=== PATIENT | male | born 1995 | race African-American/Black ===

== ENCOUNTER 2017-12-21 12:02 | Emergency (ER) | payer MEDICAID ==
--- NOTE | 2017-12-21 12:53 | ED Physician Chart ---
ED Chief Complaint/HPI - Patient Information Date Seen:: 12/21/17 Time Seen:: 12:47 Chief Complaint:: Abdominal pain and vomiting History of Present Illness:: 22 yo male with autism was brought by mother to ER for evaluation of abdominal pain, vomiting and diarrhea which started last night and persisted until this morning. No fever or chills. Per mother, the symptoms had lasted longer than his previous episodes of vomiting. Vitals:: Vital Signs - 8 hr 12/21/17 12:11 Temp 99.5 F HR 142 RR 23 BP 154/82 O2 Sat % 96 ED Review of Systems - Review of Systems General/Constitutional: No fever, No chills Skin: No rash Head: No headache Eyes: No pain ENT: No nasal drainage Neck: No neck pain Cardio Vascular: No chest pain Pulmonary: No SOB GI: Nausea, Vomiting, Diarrhea Musculoskeletal: No bone or joint pain Neurological: No focal symptoms ED Past Medical History - Past Medical History Past Medical History: Dyslipidemia (hyperlipidemia), Other (Austism, learning disability) Social History: Non Smoker, No Alcohol, No Drug Use Surgical History: other (Right kidney removed, right foot surgery) Family Medical History - Family Member Mother History Unknown: Yes ED Physical Exam - Physical Examination General/Constitutional: Awake Head: Atraumatic Eyes: PERRL Skin: No skin lesions ENMT: Nasal exam nl Neck: No nuchal rigidity Respiratory: No Wheeze/Rhonchi/Rales Cardio Vascular: RRR, No murmur, gallop, rubs, NL S1 S2 Other GI comments:: Diffuse tenderness, hypoactive bowel sound Extremities: normal strength in all extremities Other Neuro/Psych comments:: oriented to self only ED Labs/Radiology/EKG Results - Lab Results Results: Laboratory Tests 12/21/17 12:15 POC Glucose 161 H Laboratory Last Values WBC 13.5 Th/cmm (4.8-10.8) H 12/21/17 13:04 RBC 5.12 Mil/cmm (4.30-5.70) 12/21/17 13:04 Hgb 15.7 gm/dL (12-16) 12/21/17 13:04 Hct 47.0 % (41.0-60) 12/21/17 13:04 MCV 91.9 fl (80-99) 12/21/17 13:04 MCH 30.8 pg (26.0-30.0) H 12/21/17 13:04 MCHC Differential 33.5 pg (28.0-36.0) 12/21/17 13:04 RDW 12.0 % (11.5-20.0) 12/21/17 13:04 Plt Count 232 Th/cmm (150-400) 12/21/17 13:04 MPV 8.3 fl 12/21/17 13:04 Add Manual Diff YES 12/21/17 13:04 Band Neutrophils % 1 % (0-10) 12/21/17 13:04 Neutrophils (Manual) 89 % (40-80) H 12/21/17 13:04 Lymphocytes 6 % (20-50) L 12/21/17 13:04 Monocytes 4 % (2-10) 12/21/17 13:04 Eosinophils 0 % (0-5) 12/21/17 13:04 Basophils 0 % (0-3) 12/21/17 13:04 PT 11.2 SECONDS (9.5-11.5) 12/21/17 13:18 INR 1.08 (0.5-1.4) 12/21/17 13:18 PTT (Actin FS) 27.7 SECONDS (26.0-38.0) 12/21/17 13:18 Sodium 135 mEq/L (136-145) L 12/21/17 13:04 Potassium 3.5 mEq/L (3.5-5.1) 12/21/17 13:04 Chloride 104 mEq/L (98-107) 12/21/17 13:04 Carbon Dioxide 22.2 mEq/L (21.0-31.0) 12/21/17 13:04 Anion Gap 12.3 (7.0-16.0) 12/21/17 13:04 BUN 16 mg/dL (7-25) 12/21/17 13:04 Creatinine 1.5 mg/dL (0.7-1.3) H 12/21/17 13:04 Est GFR ( Amer) > 60.0 ml/min (>90) 12/21/17 13:04 Est GFR (Non-Af Amer) > 60.0 ml/min 12/21/17 13:04 BUN/Creatinine Ratio 10.7 12/21/17 13:04 Glucose 138 mg/dL (70-105) H 12/21/17 13:04 POC Glucose 161 MG/DL (70 - 105) H 12/21/17 12:15 Whole Bld Lactic Acid 1.79 mmol/L (0.60-1.99) 12/21/17 13:04 Calcium 9.8 mg/dL (8.6-10.3) 12/21/17 13:04 Total Bilirubin 1.2 mg/dL (0.3-1.0) H 12/21/17 13:04 AST 21 U/L (13-39) 12/21/17 13:04 ALT 18 U/L (7-52) 12/21/17 13:04 Alkaline Phosphatase 92 U/L (34-104) 12/21/17 13:04 Total Protein 7.0 gm/dL (6.0-8.3) 12/21/17 13:04 Albumin 4.5 gm/dL (4.2-5.5) 12/21/17 13:04 Globulin 2.5 gm/dL 12/21/17 13:04 Albumin/Globulin Ratio 1.8 (1.0-1.8) 12/21/17 13:04 Amylase 61 U/L (29-103) 12/21/17 13:04 Lipase 13 U/L (11-82) 12/21/17 13:04 Urine Source RANDOM 12/21/17 14:20 Urine Color YELLOW 12/21/17 14:20 Urine Clarity CLEAR (CLEAR) 12/21/17 14:20 Urine pH 6.0 (4.6 - 8.0) 12/21/17 14:20 Ur Specific [place] 1.010 (1.005-1.030) 12/21/17 14:20 Urine Protein 100 mg/dL (NEGATIVE) H 12/21/17 14:20 Urine Glucose (UA) NEGATIVE mg/dL (NEGATIVE) 12/21/17 14:20 Urine Ketones NEGATIVE mg/dL (NEGATIVE) 12/21/17 14:20 Urine Blood SMALL (NEGATIVE) H 12/21/17 14:20 Urine Nitrate NEGATIVE (NEGATIVE) 12/21/17 14:20 Urine Bilirubin NEGATIVE (NEGATIVE) 12/21/17 14:20 Urine Urobilinogen 0.2 E.U./dL (0.2 - 1.0) 12/21/17 14:20 Ur Leukocyte Esterase NEGATIVE (NEGATIVE) 12/21/17 14:20 Urine RBC 0-2 /hpf (0-5) H 12/21/17 14:20 Urine WBC 0-2 /hpf (0-5) 12/21/17 14:20 Ur Epithelial Cells RARE /lpf (FEW) 12/21/17 14:20 Urine Bacteria NONE SEEN /hpf (NONE SEEN) 12/21/17 14:20 - Radiology Results Results: CXR: hyperinflated lung, no focal consolidation - EKG Interpretations EKG Time:: 13:05 Rate & Rhythm: 114 bpm, sinus tachycardia Ramsey: left atrial enlargement ED Assessment - Assessment General Assessment: Gastroenteritis Leukocytosis Elevated creatinine Proteinuria Assessment/Comments:: CBC, CMP, Amylase, lipase, UA CXR, EKG NS 1L IV bolus Levofloxacin 750mg IV x 1 D/c home Levofloxacin 500mg po q48h #3 F/u PCP and power distribution engineer for proteinuria Return to ER if symptoms worsen ED Septic Shock - . Is Septic Shock (SBP<90, OR Lactate>4 mmol\L) present?: No - <6hrs of presentation: Vital Signs: Vital Signs - 8 hr 12/21/17 12:11 Temp 99.5 F HR 142 RR 23 BP 154/82 O2 Sat % 96 ED Reassessment (Disposition) - Reassessment Reassessment Condition:: Improved - Patient Disposition Discharge/Transfer:: Home ED Discharge Plan - Patient Disposition Admit/Discharge/Transfer: PT DISCHARGED HOME Condition at Disposition: Stable Prescriptions: Levofloxacin [Levaquin] 500 mg PO Q48H #3 tab Instructions: Gastritis, Adult, [id number] Additional Instructions: follow up with primary doctor in 1-2 days, return for any concerns, take prescribed medications as ordered.
[2017-12-21 13:11] LABS: HEMOGLOBIN 15.7 gm/dL (12-16); MEAN CELL VOLUME 91.9 fl (80-99); MEAN CORPUSCULAR HEMOGLOBIN 30.8 pg (26.0-30.0); MEAN CORPUSCULAR HGB CONC 33.5 pg (28.0-36.0); MEAN PLATELET VOLUME 8.3 fl; PLATELET COUNT 232 Th/cmm (150-400); RED BLOOD COUNT 5.12 Mil/cmm (4.30-5.70); WHITE BLOOD COUNT 13.5 Th/cmm (4.8-10.8)
[2017-12-21 13:29] LABS: ALB/GLOB RATIO 1.8 (1.0-1.8); ALBUMIN 4.5 gm/dL (4.2-5.5); ALKALINE PHOSPHATASE 92 U/L (34-104); AMYLASE SERUM 61 U/L (29-103); ANION GAP 12.3 (7.0-16.0); BILIRUBIN,TOTAL 1.2 mg/dL (0.3-1.0); BUN - UREA NITROGEN 16 mg/dL (7-25); CALCIUM SERUM 9.8 mg/dL (8.6-10.3); CARBON DIOXIDE 22.2 mEq/L (21.0-31.0); CHLORIDE 104 mEq/L (98-107); CREATININE - SERUM 1.5 mg/dL (0.7-1.3); GFR AFRICAN-AMERICAN > 60.0 ml/min (>90); GFR NON AFRICAN-AMERICAN > 60.0 ml/min; GLUCOSE 138 mg/dL (70-105); LIPASE 13 U/L (11-82); POTASSIUM SERUM 3.5 mEq/L (3.5-5.1); SGOT 21 U/L (13-39); SGPT/ALT 18 U/L (7-52); SODIUM SERUM 135 mEq/L (136-145)
[2017-12-21 13:33] LABS: BAND NEUTROPHILE 1 % (0-10); BASOPHIL 0 % (0-3); EOSINOPHIL 0 % (0-5); LYMPHOCYTE 6 % (20-50); MONOCYTE 4 % (2-10); NEUTROPHILS 89 % (40-80)
[2017-12-21 13:36] LABS: INR 1.08 (0.5-1.4); PROTHROMBIN TIME (TEST) 11.2 SECONDS (9.5-11.5)
--- NOTE | 2017-12-21 13:44 | Diagnostic Imaging Report ---
CHEST X-RAY: AP view INDICATION: Shortness of breath COMPARISON: None FINDINGS: Hyperinflated lungs are noted. There is no focal consolidation or pleural effusions The heart is normal in size. The osseous structures demonstrate no acute abnormalities. IMPRESSION: Hyperinflated lungs. No focal consolidation identified.
[2017-12-21] MEDS ORDERED: Sodium Chloride 0.9% 1,000 ML IV ONE (14:02)
[2017-12-21] MEDS ORDERED: cefTRIAXone 1 GM in Sodium Chloride 0.9% 50 ML IV ONE (14:03)
[2017-12-21] MEDS ORDERED: Levofloxacin 750mg/150mL 750 MG/150 ML BAG IV ONE ×2 (14:04→14:34)
[2017-12-21 14:31] LABS: URINE MICROSCOPIC INDICATED? YES; URINE SOURCE RANDOM
[2017-12-21 14:40] LABS: URINE BILIRUBIN NEGATIVE (NEGATIVE); URINE BLOOD SMALL (NEGATIVE); URINE GLUCOSE (UA) NEGATIVE (NEGATIVE); URINE KETONE NEGATIVE (NEGATIVE); URINE LEUKOCYTE ESTERASE NEGATIVE (NEGATIVE); URINE NITRATE NEGATIVE (NEGATIVE); URINE PROTEIN 100 mg/dL (NEGATIVE); URINE UROBILINOGEN 0.2 E.U./dL (0.2 - 1.0)
[2017-12-21 14:42] LABS: URINE CLARITY CLEAR (CLEAR); URINE COLOR YELLOW
[2017-12-21 14:46] LABS: URINE BACTERIA NONE SEEN /hpf (NONE SEEN); URINE EPITHELIAL CELLS RARE /lpf (FEW); URINE RBC 0-2 /hpf (0-5); URINE WBC 0-2 /hpf (0-5)
== END 2017-12-21 16:50 | disposition home or self-care (01) ==
LOC: ER 12:02
DX: R10.84 Generalized abdominal pain (principal); R11.2 Nausea with vomiting, unspecified; R19.7 Diarrhea, unspecified; E78.5 Hyperlipidemia, unspecified
CPT/HCPCS: 99285; 96365; 93005; 71045; 36415; 36416; 82948; 83605; 85007; 85025; 85610; 81001; 82150; 83036; 83690; 80053; 87040 ×2; J1956; 96374; J7030

== ENCOUNTER 2018-10-21 09:32 | Emergency (ER) | payer MEDICAID ==
--- NOTE | 2018-10-21 13:39 | ED Physician Chart ---
ED Chief Complaint/HPI - Patient Information Date Seen:: 10/21/18 Time Seen:: 10:15 Chief Complaint:: Earaches History of Present Illness:: onset x one week of E/As, S/T, intermittent fever, and congestion; no report/pt denies trauma, LOC, ALOC, AMS, hearing loss, tinnitus, vertigo, dizziness, cough , H/As, neck pain, C/P, SOB, Abd. Pain, A/N/V/D/C, chills, or urinary s/s; pt is eating and urinating well; pt last urinated 1/2 hour GEOLOGICAL SCOUT Allergies:: Allergies Allergy/AdvReac Type Severity Reaction Status Date / Time Penicillins Allergy Verified 12/21/17 13:10 Vitals:: Vital Signs - 8 hr 10/21/18 10:15 Temp 98.4 F HR 137 RR 16 BP 155/99 O2 Sat % 98 Historian:: Patient, Family Member Review:: Nurse's Note Reviewed, Old Chart Reviewed ED Review of Systems - Review of Systems General/Constitutional: Fever, No chills, No weight loss, No weakness, No diaphoresis, No edema, No loss of appetite Skin: No skin lesions, No rash, No bruising Head: No headache, No light-headedness Eyes: No loss of vision, No pain, No diplopia ENT: Earache, Nasal drainage, No sore throat, No tinnitus Neck: No neck pain, No swelling, No thyromegaly, No stiffness, No mass noted Cardio Vascular: No chest pain, No palpitations, No PND, No orthopnea, No edema Pulmonary: No SOB, No cough, No sputum, No wheezing GI: No nausea, No vomiting, No diarrhea, No pain, No melena, No hematochezia, No constipation, No hematemesis G/U: No dysuria, No frequency, No hematuria, No nacturia Musculoskeletal: No bone or joint pain, No back pain, No muscle pain Endocrine: No polyuria, No polydipsia Psychiatric: No prior psych history, No depression, No anxiety, No suicidal ideation, No homicidal ideation, No auditory hallucination, No visual hallucination Hematopoietic: No bruising, No lymphadenopathy Allergic/Immuno: No urticaria, No angioedema Neurological: No syncope, No focal symptoms, No weakness, No paresthesia, No headache, No seizure, No dizziness, No confusion, No vertigo ED Past Medical History - Past Medical History Obtainable: Yes Past Medical History: No significant medical hx Family History: None Social History: Non Smoker, No Alcohol, No Drug Use, Single, Lives With Parents Surgical History: None Psychiatricy History: None Medication: Reviewed Family Medical History - Family Member Mother History Unknown: Yes ED Physical Exam - Physical Examination General/Constitutional: Awake, Well-developed, well-nourished, Alert, No distress, GCS 15, Non-toxic appearing, Ambulatory Head: Atraumatic Eyes: Lids, conjuctiva normal, PERRL, EOMI Skin: Nl inspection, No rash, No skin lesions, No ecchymosis, Well hydrated, No lymphadenopathy ENMT: External ears, nose nl, Nasal exam nl, Lips, teeth, gums nl, Oropharynx nl , Tonsils nl Other ENMT comments:: Ears: TMs: dull and injected; + Cerumen; Pharynx: Injected; no exudates; no abscesses; no FBs; no airway obstruction; + Nasal Congestion Neck: Nontender, Full ROM w/o pain, No JVD, No nuchal rigidity, No bruit, No mass, No stridor Other Neck comments:: supple; no meningeal signs; no cervical tenderness; no bruits Respiratory: Nl effort/Exclusion, Clear to Auscultation, No Wheeze/Rhonchi/Rales Cardio Vascular: RRR, No murmur, gallop, rubs, NL S1 S2, Carotid/Femoral/Distal pulses equal bilaterally GI: No tenderness/rebounding/guarding, No organomegaly, No hernia, Normal BS's, Nondistended, No mass/bruits, No McBurney tenderness Other GI comments:: no pulsatile masses : No CVA tenderness Extremities: No tenderness or effusion, Full ROM, normal strength in all extremities, No edema, Normal digits & nails Neuro/Psych: Alert/oriented, DTR's symmetric, Normal sensory exam, Normal motor strength, Judgement/insight normal, Mood normal, Normal gait, No focal deficits Other Neuro/Psych comments:: no focal signs Misc: Normal back, No paraspinal tenderness ED Septic Shock - . Is Septic Shock (SBP<90, OR Lactate>4 mmol\L) present?: No - <6hrs of presentation: Vital Signs: Vital Signs - 8 hr 10/21/18 10:15 Temp 98.4 F HR 137 RR 16 BP 155/99 O2 Sat % 98 ED Reassessment (Disposition) - Reassessment Reassessment:: pt tolerated po fluids well in ER; pt is asymptomatic upon discharge; Final Pulse: 80; BP: 130/82 Reassessment Condition:: Improved - Diagnosis Diagnosis:: Earaches; Otitis Media; Pharyngitis; Sore Throat; Congestion; Sinusitis; Fever; URI; HTN - Aftercare/Follow up Instructions Aftercare/Follow-Up Instructions:: Counseled pt regarding lab results/diagnosis & need follow up, Refer to Discharge Instructions, Counseled pt & family regarding lab results/diagnosis & need follow up Medication Prescribed:: Rx: Azithromycin/ Z-Pack (#6); Tylenol; Cool Mist Vaporizer; Salt Water Gargles ; Fluids; take medications as prescribed - Patient Disposition Discharge/Transfer:: Home Condition at Disposition:: Stable, Improved (RTER prn if existing s/s reoccur and/or get worse and/or any other new s/s occur; Have Blood pressure re-checked in one day by PMD; ACIs given for all above Dx; refer to ENT Specialist/ Food Tray Assembler ALF; F/U with PMD in one day or prn; RTER prn if concerned)
== END 2018-10-21 10:45 | disposition home or self-care (01) ==
LOC: ER 09:32
DX: H66.93 Otitis media, unspecified, bilateral (principal); J32.9 Chronic sinusitis, unspecified; J06.9 Acute upper respiratory infection, unspecified; I10 Essential (primary) hypertension; Z88.0 Allergy status to penicillin
CPT/HCPCS: Z7502